=== PATIENT | female | born 1995 | race Caucasian/White ===

== ENCOUNTER 2018-03-19 09:08 | Observation (INO) | payer MEDICAID ==
[2018-03-19] MEDS ORDERED: PREN1TAB80 PO (09:52)
== END 2018-03-19 11:30 | disposition home or self-care (01) ==
LOC: 4S 09:08
PROVIDERS: ADMIT Obstetrics & Gynecology; ATTEND Obstetrics & Gynecology
DX: O99.89 Other specified diseases and conditions complicating pregnancy, childbirth and the puerperium (principal); M54.9 Dorsalgia, unspecified; Z3A.38 38 weeks gestation of pregnancy
CPT/HCPCS: 36415; 59025; 76805; 82947; 83036; G0378

== ENCOUNTER 2018-03-25 15:14 | Inpatient (IN) | payer MEDICAID ==
[~2018-03-25] VITALS: Ht 165.1 cm; Wt 137.9 kg
[~2018-03-25 15:14] MED LIST: PREN1TAB80 PO
[2018-03-25] MEDS ORDERED: OXYTOCIN 30 UNITS/LACT RINGERS 500 ML IV ONE (15:33)
[2018-03-25] MEDS ORDERED: RINGERS SOLUTION,LACTATED 1,000 ML IV PRN (15:33)
[2018-03-25] MEDS ORDERED: LIDOCAINE/PF 1% 30 ML VIAL INJ PRN (15:45)
[2018-03-25] MEDS ORDERED: METOCLOPRAMIDE HCL 5 MG/ML 2 ML VIAL IVP PRN (15:45)
[2018-03-25] MEDS ORDERED: METHYLERGONOVINE MALEATE 0.2 MG/ML VIAL IM PRN (15:45)
[2018-03-25] MEDS ORDERED: CITRIC ACID/SODIUM CITRATE 30 ML SOLUTION UDCUP PO PRN (15:45)
[2018-03-25 16:16] LABS: BASOPHILS % (AUTO) 0.6 % (0.0-2.0); EOSINOPHILS % (AUTO) 0.6 % (1.0-6.0); HEMATOCRIT 39.9 % (36-46); HEMOGLOBIN 13.3 g/dL (12.0-16.0); LYMPHOCYTES # (AUTO) 1.6 K/uL (1.0-4.8); LYMPHOCYTES % (AUTO) 15.2 % (22.0-44.0); MEAN CORPUSCULAR HEMOGLOBIN 28.6 pg (26.0-34.0); MEAN CORPUSCULAR HGB CONC 33.5 G/dL (31.0-37.0); MEAN CORPUSCULAR VOLUME 86 fL (80-100); MONOCYTES # (AUTO) 0.5 K/uL (0.1-1.0); MONOCYTES % (AUTO) 4.8 % (2.0-9.0); NEUTROPHILS # (AUTO) 8.1 K/uL (1.8-7.7); NEUTROPHILS % (AUTO) 78.8 % (40.0-70.0); PLATELET COUNT (AUTO)-OB 246 K/uL (150-450); RED BLOOD CELL COUNT(AUTO) 4.66 MIL/uL (4.00-5.20); RED CELL DISTRIBUTION WIDTH 13.7 % (11.5-14.5)
[2018-03-25 16:21] VITALS: BP 122/57
[2018-03-25 16:36] LABS: RUBELLA SCREEN (IGG) IMMUNE (IMMUNE)
[2018-03-25] MEDS: RINGERS SOLUTION,LACTATED 1,000 ML IV SCH (16:38)
[2018-03-25] MEDS: MISOPROSTOL 25 MCG TABLET PO SCH ×2 (17:44→23:13)
[2018-03-25] MEDS: OXYGEN THERAPY IH SCH (20:00)
[2018-03-26] MEDS: MISOPROSTOL 25 MCG TABLET PO SCH ×4 (03:17→16:44)
[2018-03-26] MEDS: FentaNYL CITRATE-PF 100 MCG/2 ML VIAL IVP PRN ×2 (03:18→03:27)
[2018-03-26] MEDS ORDERED: OXYTOCIN 30 UNITS/LACT RINGERS 500 ML IV PRN ×2 (05:17→21:22)
[2018-03-26 06:00] LABS: GLUCOMETER DEV NAME(LOC) 4S 8; GLUCOSE,POINT OF CARE 78 MG/DL (70-110)
[2018-03-26] MEDS: OXYGEN THERAPY IH SCH (08:00)
[2018-03-26] MEDS ORDERED: MISOPROSTOL 100 MCG TABLET ONE (12:34)
[2018-03-26] MEDS: RINGERS SOLUTION,LACTATED 1,000 ML IV SCH ×2 (15:09→23:40)
[2018-03-27] MEDS: FentaNYL CITRATE-PF 100 MCG/2 ML VIAL IVP PRN ×4 (01:23→02:39)
[2018-03-27] MEDS ORDERED: LIDOCAINE 2%/EPI 1:200,000/PF 20 ML VIAL ONE (03:18)
[2018-03-27] MEDS ORDERED: FentaNYL CITRATE-PF 100 MCG/2 ML VIAL ONE ×2 (03:18→11:41)
[2018-03-27] MEDS ORDERED: ROPIVACAINE HCL/PF 0.2% 0 ML ED ONE (03:42)
[2018-03-27] MEDS ORDERED: ROPIVACAINE HCL/PF 0.2% 100 ML ED PRN (04:03)
[2018-03-27] MEDS ORDERED: NALBUPHINE HCL 10 MG/ML VIAL IVP PRN (04:15)
[2018-03-27] MEDS ORDERED: ONDANSETRON HCL 4 MG/2 ML VIAL IVP PRN (04:15)
[2018-03-27] MEDS: RINGERS SOLUTION,LACTATED 1,000 ML IV SCH (07:09)
[2018-03-27] MEDS ORDERED: ROPIVACAINE HCL/PF 0.2% 100 ML ED ONE (10:36)
[2018-03-27] MEDS ORDERED: LIDOCAINE/PF 2% 5 ML VIAL ONE ×2 (11:40→11:41)
[2018-03-27] MEDS ORDERED: RINGERS SOLUTION,LACTATED 1,000 ML IV ONE (12:57)
[2018-03-27] MEDS ORDERED: IBUPROFEN 600 MG TABLET PO PRN (13:00)
[2018-03-27] MEDS ORDERED: OxyCODONE HCL/ACETAMINOPHEN 5-325 MG TABLET PO PRN ×2 (13:00)
[2018-03-27] MEDS ORDERED: LANOLIN 7 GM OINTMENT TP PRN (13:00)
[2018-03-27] MEDS ORDERED: BENZOCAINE 20%/MENTHOL 56 GM SPRAY CANISTER TP PRN (13:00)
[2018-03-27] MEDS ORDERED: GLYCERIN/WITCH HAZEL LEAF 40 PADS JAR TP PRN (13:00)
[2018-03-27] MEDS ORDERED: MEASLES/MUMPS/RUBELLA VACCINE, LIVE 0.5 ML/VIAL SQ ONE (13:00)
[2018-03-27] MEDS ORDERED: MAGNESIUM HYDROXIDE SUSPENSION 30 ML UDCUP PO SCH (21:00)
[2018-03-28] MEDS ORDERED: IBUP-2070 PO (16:07)
[2018-03-28] MEDS ORDERED: PNV11TAB PO (16:08)
[2018-03-28] MEDS ORDERED: DSS100 PO (16:08)
== END 2018-03-28 17:10 | disposition home or self-care (01) | DRG 560 ==
LOC: OBSVTOIN 15:14 → 4S 15:14
PROVIDERS: ADMIT Obstetrics & Gynecology; ATTEND Obstetrics & Gynecology
PROC: 10D07Z6 Extraction of Products of Conception, Vacuum, Via Natural or Artificial Opening (ICD-10-PCS; principal; 2018-03-27)
PROC: 0HQ9XZZ Repair Perineum Skin, External Approach (ICD-10-PCS; 2018-03-27)
PROC: 3E0R3BZ Introduction of Anesthetic Agent into Spinal Canal, Percutaneous Approach (ICD-10-PCS; 2018-03-27)
PROC: 00HU33Z Insertion of Infusion Device into Spinal Canal, Percutaneous Approach (ICD-10-PCS; 2018-03-27)
DX: O77.0 Labor and delivery complicated by meconium in amniotic fluid (principal); O66.5 Attempted application of vacuum extractor and forceps; O70.0 First degree perineal laceration during delivery; Z3A.39 39 weeks gestation of pregnancy; Z37.0 Single live birth
CPT/HCPCS: 82947; 86592; 86762; 86850; 86900; 86901; 87340; J2590; J2795; J3010; J3490; J7120

== ENCOUNTER 2018-04-08 21:21 | Emergency (ER) | payer MEDICAID ==
[~2018-04-08] VITALS: Ht 162.6 cm; Wt 126.4 kg
[~2018-04-08 21:21] MED LIST changes: +DSS100 PO; +IBUP-2070 PO
[2018-04-08] MEDS ORDERED: SODIUM CHLORIDE 0.9% 1,000 ML IV ONE (22:00)
[2018-04-08] MEDS ORDERED: ACETAMINOPHEN 500 MG TABLET PO ONE (22:00)
[2018-04-08 22:07] LABS: INFLUENZA TYPE A NEGATIVE FOR TYPE A (NEGATIVE); INFLUENZA TYPE B NEGATIVE FOR TYPE B (NEGATIVE)
[2018-04-08 22:19] LABS: BASOPHILS % (AUTO) 0.7 % (0.0-2.0); EOSINOPHILS % (AUTO) 0.8 % (1.0-6.0); HEMATOCRIT 38.7 % (36-46); HEMOGLOBIN 13.1 g/dL (12.0-16.0); LYMPHOCYTES # (AUTO) 1.5 K/uL (1.0-4.8); LYMPHOCYTES % (AUTO) 10.7 % (22.0-44.0); MEAN CORPUSCULAR HEMOGLOBIN 28.2 pg (26.0-34.0); MEAN CORPUSCULAR HGB CONC 33.8 G/dL (31.0-37.0); MEAN CORPUSCULAR VOLUME 83 fL (80-100); MONOCYTES # (AUTO) 0.6 K/uL (0.1-1.0); MONOCYTES % (AUTO) 4.1 % (2.0-9.0); NEUTROPHILS # (AUTO) 11.6 K/uL (1.8-7.7); NEUTROPHILS % (AUTO) 83.7 % (40.0-70.0); PLATELET COUNT (AUTO) 358 K/uL (150-450); RED BLOOD CELL COUNT(AUTO) 4.64 MIL/uL (4.00-5.20); RED CELL DISTRIBUTION WIDTH 13.9 % (11.5-14.5)
[2018-04-08 22:23] LABS: APPEARANCE,URINE TURBID (CLEAR); BILIRUBIN,URINE NEGATIVE (NEGATIVE); GLUCOSE, URINE (UA) NEGATIVE (NEGATIVE); KETONES,URINE NEGATIVE (NEGATIVE); LEUKOCYTE ESTERASE ,URINE LARGE (NEGATIVE); OCCULT BLOOD,URINE LARGE (NEGATIVE); PROTEIN,URINE SEE CONFIRM (NEGATIVE)
[2018-04-08 22:28] LABS: BACTERIA,URINE Many /HPF (None Seen); NITRATE,URINE POSITIVE (NEGATIVE); SQUAMOUS EPITHELIAL CELL,UR Few /LPF (None Seen); SULFOSALICYLIC ACID,URINE 3+ (Negative); WBC,URINE 51-100 /HPF (0-5)
[2018-04-08 22:30] LABS: ANION GAP 10 mmol/L (8-16); CARBON DIOXIDE 23 mmol/L (22-29); CHLORIDE 104 mmol/L (98-107); CREATININE 0.92 mg/dL (0.60-1.30); GLOMERULAR FILTR. RATE CALC > 60 mL/min (>60); GLUCOSE,RANDOM 122 mg/dL (70-110); POTASSIUM 3.2 mmol/L (3.5-5.1); SODIUM SERUM 137 mmol/L (136-145); UREA NITROGEN, BLOOD 6 mg/dL (7-18)
[2018-04-08 22:35] LABS: ALANINE AMINOTRANSFERASE 31 U/L (12-78); ALBUMIN 2.7 g/dL (3.4-5.0); ALKALINE PHOSPHATASE 138 U/L (46-116); ASPARTATE AMINOTRANSFERASE 19 U/L (15-37); BILIRUBIN,TOTAL 0.5 mg/dL (0.1-1.0); TOTAL PROTEIN, SERUM 7.3 g/dL (6.4-8.2)
[2018-04-08 23:02] VITALS: BP 138/77
== END 2018-04-08 23:03 | disposition home or self-care (01) ==
LOC: EMS 21:22
DX: O86.20 Urinary tract infection following delivery, unspecified (principal); F53.0 Postpartum depression; Z91.018 Allergy to other foods
CPT/HCPCS: 87086; 87804; 99284

== ENCOUNTER 2019-04-20 23:02 | Emergency (ER) | payer MEDICAID ==
[~2019-04-20] VITALS: Ht 157.5 cm; Wt 132.3 kg
[2019-04-20] MEDS ORDERED: MICO45CR76 VG (23:38)
[2019-04-20] MEDS ORDERED: PNV11TAB PO (23:38)
[2019-04-21 00:21] LABS: BASOPHILS % (AUTO) 0.7 % (0.0-2.0); LYMPHOCYTES # (AUTO) 2.5 K/uL (1.0-4.8); LYMPHOCYTES % (AUTO) 25.3 % (22.0-44.0); MEAN CORPUSCULAR HEMOGLOBIN 28.2 pg (26.0-34.0); MEAN CORPUSCULAR HGB CONC 33.5 G/dL (31.0-37.0); MEAN CORPUSCULAR VOLUME 84 fL (80-100); MONOCYTES # (AUTO) 0.7 K/uL (0.1-1.0); MONOCYTES % (AUTO) 6.6 % (2.0-9.0); NEUTROPHILS # (AUTO) 6.5 K/uL (1.8-7.7); NEUTROPHILS % (AUTO) 65.4 % (40.0-70.0); PLATELET COUNT (AUTO) 341 K/uL (150-450); RED BLOOD CELL COUNT(AUTO) 4.62 MIL/uL (4.00-5.20); RED CELL DISTRIBUTION WIDTH 13.8 % (11.5-14.5)
[2019-04-21 00:32] LABS: ANION GAP 9 mmol/L (8-16); CALCIUM, TOTAL 9.6 mg/dL (8.8-10.5); CARBON DIOXIDE 29 mmol/L (22-29); CHLORIDE 101 mmol/L (98-107); CREATININE 0.49 mg/dL (0.60-1.30); GLOMERULAR FILTR. RATE CALC > 60 mL/min (>60); GLUCOSE,RANDOM 86 mg/dL (70-110); POTASSIUM 3.5 mmol/L (3.5-5.1); SODIUM SERUM 139 mmol/L (136-145); UREA NITROGEN, BLOOD 9 mg/dL (7-18)
[2019-04-21 00:35] LABS: APPEARANCE,URINE CLEAR (CLEAR); BILIRUBIN,URINE NEGATIVE (NEGATIVE); GLUCOSE, URINE (UA) NEGATIVE (NEGATIVE); KETONES,URINE NEGATIVE (NEGATIVE); LEUKOCYTE ESTERASE ,URINE NEGATIVE (NEGATIVE); NITRATE,URINE NEGATIVE (NEGATIVE); OCCULT BLOOD,URINE NEGATIVE (NEGATIVE); PROTEIN,URINE NEGATIVE (NEGATIVE); UROBILINOGEN,URINE 0.2 mg/dL (<=1.0)
[2019-04-21 00:44] LABS: BACTERIA,URINE Rare /HPF (None Seen); RBC,URINE 0-2 /HPF (0-2); SQUAMOUS EPITHELIAL CELL,UR Moderate /LPF (None Seen); WBC,URINE 0-2 /HPF (0-5)
[2019-04-21 01:02] LABS: ALANINE AMINOTRANSFERASE 18 U/L (12-78); ALBUMIN 3.2 g/dL (3.4-5.0); ALKALINE PHOSPHATASE 119 U/L (46-116); ASPARTATE AMINOTRANSFERASE 10 U/L (15-37); BILIRUBIN,TOTAL 0.1 mg/dL (0.1-1.0); LIPASE 109 U/L (73-393); TOTAL PROTEIN, SERUM 8.3 g/dL (6.4-8.2)
[2019-04-21 01:05] LABS: HCG,QUANTITATIVE 47769 mIU/mL (0-6)
[2019-04-21 01:30] VITALS: BP 118/63
== END 2019-04-21 01:52 | disposition home or self-care (01) ==
LOC: EMS 23:03
DX: O26.891 Other specified pregnancy related conditions, first trimester (principal); R10.30 Lower abdominal pain, unspecified; Z91.018 Allergy to other foods; Z3A.10 10 weeks gestation of pregnancy
CPT/HCPCS: 36415; 76801; 76817; 80053; 81001; 83690; 84702; 85025; 99284; G0480

== ENCOUNTER 2019-10-04 18:05 | Observation (INO) | payer OTHER ==
[~2019-10-04 18:05] MED LIST changes: -DSS100 PO; -IBUP-2070 PO; +MICO45CR76 VG; +PNV11TAB PO; -PREN1TAB80 PO
[2019-10-04 18:56] VITALS: BP 104/62
== END 2019-10-04 20:25 | disposition home or self-care (01) ==
LOC: 4S 18:05
PROVIDERS: ADMIT Obstetrics & Gynecology; ATTEND Obstetrics & Gynecology
DX: Z34.83 Encounter for supervision of other normal pregnancy, third trimester (principal); Z3A.34 34 weeks gestation of pregnancy
CPT/HCPCS: 59025; 76805; G0378

== ENCOUNTER 2019-10-18 18:55 | Observation (INO) | payer OTHER ==
[~2019-10-18] VITALS: Ht 162.6 cm; Wt 142.4 kg
[2019-10-18 19:51] VITALS: BP 121/61
== END 2019-10-18 20:45 | disposition home or self-care (01) ==
LOC: 4S 18:55
PROVIDERS: ADMIT Obstetrics & Gynecology; ATTEND Obstetrics & Gynecology
DX: Z34.83 Encounter for supervision of other normal pregnancy, third trimester (principal); Z3A.36 36 weeks gestation of pregnancy
CPT/HCPCS: 59025; 81001; G0378

== ENCOUNTER 2019-10-22 16:27 | Observation (INO) | payer OTHER ==
[2019-10-22 17:05] VITALS: BP 106/60
== END 2019-10-22 17:25 | disposition home or self-care (01) ==
LOC: 4S 16:27
PROVIDERS: ADMIT Obstetrics & Gynecology; ATTEND Obstetrics & Gynecology
DX: O36.8130 Decreased fetal movements, third trimester, not applicable or unspecified (principal); Z3A.37 37 weeks gestation of pregnancy
CPT/HCPCS: 59025; G0378

== ENCOUNTER 2019-10-22 19:21 | Observation (INO) | payer OTHER ==
[~2019-10-22] VITALS: Ht 162.6 cm; Wt 141.5 kg
[2019-10-25 16:33] VITALS: BP 135/65
== END 2019-10-25 17:35 | disposition home or self-care (01) ==
LOC: 4S 10-25 16:05
PROVIDERS: ADMIT Obstetrics & Gynecology; ATTEND Obstetrics & Gynecology
DX: Z34.83 Encounter for supervision of other normal pregnancy, third trimester (principal); Z3A.37 37 weeks gestation of pregnancy
CPT/HCPCS: 59025; G0378

== ENCOUNTER 2019-11-01 08:00 | Inpatient (IN) | payer OTHER ==
[~2019-11-01] VITALS: Ht 162.6 cm; Wt 142.0 kg
[2019-11-01 08:49] VITALS: BP 111/56
[2019-11-01] MEDS ORDERED: OXYTOCIN 30 UNITS/LACT RINGERS 500 ML IV ONE (09:14)
[2019-11-01] MEDS ORDERED: RINGERS SOLUTION,LACTATED 1,000 ML IV PRN (09:14)
[2019-11-01] MEDS ORDERED: METHYLERGONOVINE MALEATE 0.2 MG/ML VIAL IM PRN (09:15)
[2019-11-01] MEDS ORDERED: FentaNYL CITRATE-PF 100 MCG/2 ML VIAL IVP PRN ×3 (09:15→11:15)
[2019-11-01] MEDS ORDERED: LIDOCAINE/PF 1% 30 ML VIAL INJ PRN (09:15)
[2019-11-01] MEDS ORDERED: METOCLOPRAMIDE HCL 5 MG/ML 2 ML VIAL IVP PRN (09:15)
[2019-11-01] MEDS ORDERED: CITRIC ACID/SODIUM CITRATE 30 ML SOLUTION UDCUP PO PRN (09:15)
[2019-11-01] MEDS ORDERED: TERBUTALINE SULFATE 1 MG/ML VIAL SQ PRN (09:15)
[2019-11-01] MEDS ORDERED: OXYGEN THERAPY IH SCH ×4 (09:15→20:00)
[2019-11-01] MEDS: RINGERS SOLUTION,LACTATED 1,000 ML IV SCH ×2 (10:40→17:22)
[2019-11-01] MEDS ORDERED: RINGERS SOLUTION,LACTATED 1,000 ML IV ONE ×2 (10:42→11:15)
[2019-11-01] MEDS ORDERED: BUPIVACAINE HCL/DEX-WATER/PF 0.75% 2 ML AMP ONE (10:42)
[2019-11-01] MEDS ORDERED: SODIUM CHLORIDE 0.9% 1,000 ML ONE (10:42)
[2019-11-01 10:50] LABS: BASOPHILS % (AUTO) 0.3 % (0.0-2.0); EOSINOPHILS % (AUTO) 1.1 % (1.0-6.0); HEMATOCRIT 42.1 % (36-46); HEMOGLOBIN 13.8 g/dL (12.0-16.0); LYMPHOCYTES % (AUTO) 20.1 % (22.0-44.0); MEAN CORPUSCULAR HGB CONC 32.8 G/dL (31.0-37.0); MEAN CORPUSCULAR VOLUME 85 fL (80-100); MONOCYTES # (AUTO) 0.6 K/uL (0.1-1.0); MONOCYTES % (AUTO) 5.9 % (2.0-9.0); NEUTROPHILS # (AUTO) 7.2 K/uL (1.8-7.7); NEUTROPHILS % (AUTO) 72.6 % (40.0-70.0); PLATELET COUNT (AUTO)-OB 267 K/uL (150-450); RED BLOOD CELL COUNT(AUTO) 4.92 MIL/uL (4.00-5.20); RED CELL DISTRIBUTION WIDTH 13.9 % (11.5-14.5)
[2019-11-01] MEDS ORDERED: GUM MASTIC/STORAX/MSAL/ALCOHOL LIQUID 0.67 ML VIAL TP ONE (11:01)
[2019-11-01] MEDS ORDERED: DiphenhydrAMINE HCL 50 MG/ML VIAL IVP PRN (11:15)
[2019-11-01] MEDS ORDERED: NALBUPHINE HCL 10 MG/ML VIAL IVP PRN ×2 (11:15)
[2019-11-01] MEDS ORDERED: ONDANSETRON HCL 4 MG/2 ML VIAL IVP PRN (11:15)
[2019-11-01] MEDS ORDERED: MORPHINE SULFATE 10 MG/ML SYRINGE IVP PRN (11:15)
[2019-11-01] MEDS ORDERED: NALOXONE HCL 0.4 MG/ML VIAL IVP PRN (11:15)
[2019-11-01] MEDS ORDERED: MEPERIDINE-PF 25 MG/ML VIAL IVP PRN (11:15)
[2019-11-01] MEDS ORDERED: HYDROmorphone 2 MG/ML SYRINGE IVP PRN (11:15)
[2019-11-01] MEDS ORDERED: CARBOPROST TROMETHAMINE 250 MCG/ML AMP IM ONE (11:16)
[2019-11-01] MEDS ORDERED: METHYLERGONOVINE MALEATE 0.2 MG/ML VIAL ONE (11:16)
[2019-11-01] MEDS ORDERED: OXYTOCIN 10 UNITS/ML VIAL IM ONE (12:00)
[2019-11-01] MEDS ORDERED: EPHEDrine SULFATE 50 MG/ML VIAL IM ONE (12:00)
[2019-11-01] MEDS ORDERED: FentaNYL CITRATE-PF 100 MCG/2 ML VIAL IVP ONE (12:00)
[2019-11-01] MEDS ORDERED: ONDANSETRON HCL 4 MG/2 ML VIAL IVP ONE (12:00)
[2019-11-01] MEDS ORDERED: MORPHINE SULFATE/PF 0.5 MG/ML 10 ML AMP IVP ONE (12:00)
[2019-11-01] MEDS ORDERED: 0.9% SODIUM CHLORIDE 10 ML VIAL IVP ONE (12:00)
[2019-11-01] MEDS ORDERED: KETOROLAC TROMETHAMINE 60 MG/2 ML VIAL IM ONE (12:00)
[2019-11-01] MEDS ORDERED: ACETAMINOPHEN 1000 MG/ISO-OSM 100 ML IV SCH ×2 (13:00→15:45)
[2019-11-01] MEDS ORDERED: DiphenhydrAMINE HCL 50 MG/ML VIAL ONE (13:22)
[2019-11-01] MEDS ORDERED: MEASLES/MUMPS/RUBELLA VACCINE, LIVE 0.5 ML/VIAL SQ ONE (15:30)
[2019-11-01] MEDS ORDERED: LANOLIN 7 GM OINTMENT TP PRN (15:30)
[2019-11-01] MEDS: KETOROLAC TROMETHAMINE 30 MG/ML VIAL IVP SCH (19:24)
[2019-11-01] MEDS ORDERED: ACETAMINOPHEN 1000 MG/ISO-OSM 100 ML IV ONE (23:45)
[2019-11-02] MEDS: KETOROLAC TROMETHAMINE 30 MG/ML VIAL IVP SCH (01:33)
[2019-11-02] MEDS: RINGERS SOLUTION,LACTATED 1,000 ML IV SCH ×2 (01:40→10:15)
[2019-11-02 06:54] LABS: BASOPHILS % (AUTO) 0.4 % (0.0-2.0); EOSINOPHILS % (AUTO) 0.7 % (1.0-6.0); HEMATOCRIT 32.8 % (36-46); HEMOGLOBIN 10.8 g/dL (12.0-16.0); LYMPHOCYTES # (AUTO) 1.6 K/uL (1.0-4.8); MEAN CORPUSCULAR HEMOGLOBIN 28.5 pg (26.0-34.0); MEAN CORPUSCULAR VOLUME 86 fL (80-100); MONOCYTES # (AUTO) 0.5 K/uL (0.1-1.0); MONOCYTES % (AUTO) 5.5 % (2.0-9.0); NEUTROPHILS # (AUTO) 6.8 K/uL (1.8-7.7); NEUTROPHILS % (AUTO) 75.4 % (40.0-70.0); PLATELET COUNT (AUTO)-OB 224 K/uL (150-450)
[2019-11-02] MEDS: MAGNESIUM HYDROXIDE SUSPENSION 30 ML UDCUP PO PRN (12:12)
[2019-11-02] MEDS ORDERED: IBUPROFEN 800 MG TABLET ONE (12:22)
[2019-11-02] MEDS ORDERED: ACETAMINOPHEN/CODEINE 300-30 MG TABLET PO PRN ×3 (12:30→15:30)
[2019-11-02] MEDS: IBUPROFEN 800 MG TABLET PO PRN ×2 (13:29→20:55)
[2019-11-02] MEDS ORDERED: IBUPROFEN 800 MG TABLET PO PRN (15:30)
[2019-11-02] MEDS: ACETAMINOPHEN/CODEINE 300-30 MG TABLET PO PRN (18:44)
[2019-11-03] MEDS: ACETAMINOPHEN/CODEINE 300-30 MG TABLET PO PRN ×2 (02:49→19:25)
[2019-11-03] MEDS: IBUPROFEN 800 MG TABLET PO PRN ×3 (02:50→16:30)
[2019-11-03] MEDS: MAGNESIUM HYDROXIDE SUSPENSION 30 ML UDCUP PO PRN (08:58)
[2019-11-04] MEDS: IBUPROFEN 800 MG TABLET PO PRN ×2 (01:45→11:11)
[2019-11-04] MEDS: MAGNESIUM HYDROXIDE SUSPENSION 30 ML UDCUP PO PRN ×2 (02:17→13:14)
[2019-11-04] MEDS: ACETAMINOPHEN/CODEINE 300-30 MG TABLET PO PRN (06:48)
[2019-11-04] MEDS ORDERED: PERCT PO (08:42)
[2019-11-04] MEDS ORDERED: IBUP-2071 PO (08:43)
[2019-11-04] MEDS ORDERED: FERR-89 PO (08:44)
[2019-11-04] MEDS ORDERED: DOCU-275 PO (08:44)
== END 2019-11-04 13:30 | disposition home or self-care (01) | DRG 540 ==
LOC: OBSVTOIN 08:00 → 4S 08:00
PROVIDERS: ADMIT Obstetrics & Gynecology; ATTEND Obstetrics & Gynecology
PROC: 10D00Z1 Extraction of Products of Conception, Low, Open Approach (ICD-10-PCS; principal; 2019-11-01)
DX: O36.63X0 Maternal care for excessive fetal growth, third trimester, not applicable or unspecified (principal); Z37.0 Single live birth; Z3A.38 38 weeks gestation of pregnancy
CPT/HCPCS: 76811; 86850; 86900; 86901; 87635; 90707; J0131; J0690; J1200; J1885; J2210; J2274; J2405; J2590; J2765; J3010; J3490; J7030; J7120